=== PATIENT | female | born 1970 | race Caucasian/White ===

== ENCOUNTER 2022-07-20 16:08 | Emergency (ER) | payer OTHER ==
[~2022-07-20] VITALS: Ht 160 cm; Wt 99.8 kg
--- NOTE | 2022-07-20 16:18 | NUR ---
BIBA TO BED 9
--- NOTE | 2022-07-20 16:45 | NUR ---
52/F BIBA C/O ABD PAIN ACCOMPANIED BY DIAPHORESIS ONSET TODAY WHILE DRIVING. PT DENIES NVD. AFEBRILE. ON MONITOR AND GOWN, VITALS STABLE, NO ACUTE DISTRESS NOTED. PMH: HTN
--- NOTE | 2022-07-20 16:46 | NUR ---
Patient being evaluated by physician at bedside.
[2022-07-20 16:48] VITALS: BP 146/71
[2022-07-20] MEDS ORDERED: NACL 0.9% 1,000 ML IV SCH (16:50)
[2022-07-20] MEDS ORDERED: DICYCLOMINE 10 MG CAP PO ONE (16:50)
[2022-07-20] MEDS ORDERED: ONDANSETRON 4 MG/2 ML VIAL IVP ONE (16:50)
--- NOTE | 2022-07-20 17:10 | NUR ---
BLOOD DRAWN BY ENVIRONMENTAL GEOLOGIST
[2022-07-20 17:19] LABS: BASOPHILS % (AUTO) 0.4 % (0.0-2.0); EOSINOPHILS # (AUTO) 0.1 K/uL (0-0.4); EOSINOPHILS % (AUTO) 0.8 % (0.0-4.0); HEMATOCRIT 38.5 % (36-48); HEMOGLOBIN 12.2 g/dL (12.0-16.0); LYMPHOCYTES # (AUTO) 1.1 K/uL (2.5-16.5); LYMPHOCYTES % (AUTO) 10.8 % (20.5-51.1); MEAN CORPUSCULAR HEMOGLOBIN 24 pg (27-31); MEAN CORPUSCULAR HGB CONC 32 g/dL (33-37); MONOCYTES # (AUTO) 0.4 K/uL (0.8-1.0); MONOCYTES % (AUTO) 4.1 % (1.7-9.3); NEUTROPHILS # (AUTO) 8.9 K/uL (1.8-7.7); NEUTROPHILS % (AUTO) 83.9 % (42.2-75.2); PLATELET COUNT (AUTO) 303 K/uL (140-450); WHITE BLOOD COUNT (AUTO) 10.6 K/uL (4.8-10.8)
[2022-07-20 17:22] LABS: BILIRUBIN,URINE NEGATIVE (NEGATIVE); BLOOD, URINE TRACE-I (NEGATIVE); COLOR,URINE YELLOW (YELLOW); LEUKOCYTE ESTERASE ,URINE TRACE (NEGATIVE); NITRITE, URINE NEGATIVE (NEGATIVE); UGLUCOSE NEGATIVE (NEGATIVE)
[2022-07-20 17:25] LABS: APPEARANCE,URINE HAZY (CLEAR)
[2022-07-20 17:43] LABS: ALBUMIN 4.1 g/dL (3.4-5.0); ANION GAP 13.4 (8-16); ASPARTATE AMINOTRANSFERASE 7 U/L (15-37); CARBON DIOXIDE 29.4 mmol/L (21-32); CHLORIDE 101 mmol/L (98-107); CREATININE 0.9 mg/dL (0.6-1.3); GFR ARICAN-AMERICAN 85 mL/min (>90); GLUCOSE 188 mg/dL (74-106); LIPASE 92 U/L (73-393); POTASSIUM 3.8 mmol/L (3.5-5.1); SODIUM SERUM 140 mmol/L (136-145); TOTAL BILIRUBIN 0.1 mg/dL (0.0-1.0); UREA NITROGEN, BLOOD 20 mg/dL (7-18)
[2022-07-20 17:50] LABS: RBC,URINE 20-50 /HPF (0-5); WBC,URINE 0-5 /HPF (0-5)
[2022-07-20] MEDS ORDERED: CEPH-588 PO (18:13)
[2022-07-20] MEDS ORDERED: ONDA-188 SL (18:13)
== END 2022-07-20 18:25 | disposition home or self-care (01) ==
LOC: MED 16:08
DX: N30.00 Acute cystitis without hematuria (principal); R10.33 Periumbilical pain; I10 Essential (primary) hypertension; Z90.710 Acquired absence of both cervix and uterus; Z98.890 Other specified postprocedural states; Z79.899 Other long term (current) drug therapy; Z79.2 Long term (current) use of antibiotics
CPT/HCPCS: 36415; 74176; 80053; 81001; 81025; 83690; 84484; 84703; 85025; 93005; 96374; 99285; J2405; J7030